=== PATIENT | female | born 1985 | race Caucasian/White ===

== ENCOUNTER 2016-04-24 05:41 | Inpatient (IN) | payer OTHER ==
--- NOTE | 2016-04-23 23:10 | History & Physical ---
See Addendum General Information and HPI MD Statement: I have seen and personally examined JOON FAJARDO and documented this H&P. The patient is a 30 year old female at [39] weeks and [1] days gestation who presented with a chief complaint of [c/section for suspected macrosomia, failed shoulder dystocia screen]. Source of Information: patient Exam Limitations: no limitations History of Present Illness: 30 year old presents with fetus with EFW >4500g and a failed shoulder dystocia screen. She desires to proceed with elective delivery. Risks, benefits, alternatives reviewed. also remarkable for a thyroid disorder and failed one hour glucose tolerance test but normal 3 hour glucose tolerance test. 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 EENTM: Reports: no symptoms. Cardiovascular: Reports: no symptoms. Respiratory: Reports: no symptoms. GI: Reports: no symptoms. Genitourinary: Reports: no symptoms. Musculoskeletal: Reports: no symptoms. Skin: Reports: no symptoms. Neurological/Psychological: Reports: no symptoms. Hematologic/Endocrine: Reports: no symptoms. Immunologic/Allergic: Reports: no symptoms. All Other Systems: Reviewed and Negative Exam & Diagnostic Data Obstetric Exam Wgt Gained During : 38 Pelvimetry: na Dilation (cm): 0 Effacement (%): 0 Station: 0 Membranes: intact Fluid: unknown Fundal Height (cm): 40 Multiple Gestation? No Contractions: rare #1 - FHR Baseline: 130 Category: 1 Estimated Weight: 10lbs Presentation: vtx Patient for Induction? No Physical Exam General Appearance Alert, Oriented X3, Cooperative, No Acute Distress Skin No Rashes, No Breakdown, No Significant Lesion HEENT Atraumatic, PERRLA Cardiovascular Regular Rate, Normal S1, Normal S2 Lungs Clear to Auscultation, Normal Air Movement Abdomen Normal Bowel Sounds, No Tenderness, gravid Neurological Normal Gait, Normal Speech, Strength at 5/5 X4 Ext Extremities No Clubbing, No Cyanosis Reproductive (FEMALE) Normal female genitalia Labs Blood Type & Rh: Opos Antibody Screen: neg Hct/Hgb & Platelets #1: 14.1 42.1 243 Hct/Hgb & Platelets #2: 12.9 38.5 185 Rubella: imm VDRL #1: neg VDRL #2: neg HbsAg: neg HIV #1: neg HIV #2 neg 1 Hr P 3 Hr PG: nl Group B Strep: neg Initial Ultrasound: 7.28.16 Anatomy Ultrasound: 19.6, echogenic focus LV, SEEN AT [facility] AND [facility] MAT 21, MALE, Ultrasound for EFW: 37+5W, >97%, LARGER AC, POLYHDRAMNIOS, 38+5, 4533G (10LBS) AC>97% Genetic Testing: NEG PROGENITY TRIPLE, NL MAT t21, xy Assessment/Plan Assessment/Plan: 30 YEAR OLD FEMALE WITH SUSPECTED MACROSOMIC INFANT. 10 LBS EFW AND FAILED SHOULDER DYSTOCIA SCREEN, POLYHYDRAMNIOS PRESENTS FOR PRIMARY LTCS. R/B/A REVIEWED INCLUDING RISK OF BLEEDING, INFECTION, INJURY TO OTHER ORGANS, NEED FOR ADDITIONAL PROCEDURES SHOULD COMPLICATION OCCUR, POSSIBLE NEED FOR TRANSFUSION, HYSTERECTOMY. SHE STATED UNDERSTANDING OF THE ABOVE AND DESIRES TO PROCEED. As Ranked By This Provider Problem List: 1. Core Measures/Miscellaneous Venous Thromboembolism VTE Risk Factors: / VTE Contraindications: No Contraindications VTE Prophylaxis Ordered Inpt: Mechanical (ALPS/TEDS) VTE Diagnosis: No Beta Luz Is Beta Luz a Home Med? No Antibiotics Is Patient on Antibiotics? No Attending MD Review Statement Attending Statement Attending MD Statement: examined this patient, discussed with family, discussed w/nursing
[~2016-04-24] VITALS: Ht 167.6 cm; Wt 108.9 kg
[2016-04-24 05:59] VITALS: BP 137/82
--- NOTE | 2016-04-24 09:21 | Operative Report ---
Operative/Inv Procedure Report Surgery Date: 04/24/16 Name of Procedure: Primary low transverse section Pre-Operative Diagnosis: Suspected macrosomia, failed shoulder dystocia screen Post-Operative Diagnosis: Same Estimated Blood Loss: 700 mL Surgeon/Sort Line Worker: IRIS SHERMAN DO, PA Anesthesia: block Monitors: Spinal with Astramorph IV Fluids: 1700 mL Urine Output: 100 mL Drains: Reynolds catheter Specimens: Placenta Complications: None Condition: Good Operative Indication: This patient is a 30-year-old 1 para 0 who presents at 39 weeks and 1 day with presumed macrosomic . Recent estimated weight was estimated to be 10 pounds and a recent shoulder dystocia screen was positive. The patient was counseled on the risks, benefits and alternatives of elective delivery versus vaginal delivery. We discussed the margin of error with ultrasound as well as risk of surgery including risk of bleeding, infection , injury to the organs or to the and possible need for additional surgeries should complication occur, possible repeat deliveries in the future. We discussed risk of vaginal delivery with possible risk of shoulder dystocia and the potential for long-term competition for the . We discussed [employer] recommendation is delivery if diabetic and estimated weight greater than 4500 g or nondiabetic and estimated weight greater than 5000 g. Her estimated weight was 4533 g and thus does not meet criteria however in light of her recent shoulder dystocia screen the patient desires to proceed with primary low transverse section. Questions were answered. She desires to proceed. Operative/Procedure Note Note: The patient was taken to the operating room where anesthesia was obtained without difficulty. She was placed in dorsal supine position with a left lateral tilt. She was then prepared and draped in usual sterile fashion. A Pfannenstiel skin incision was made with the scalpel and carried down to the fascia with the scalpel as well as with the Bovie. The fascia was incised with the scalpel and the incision was then extended bilaterally with Blank scissors. The superior aspect of the fascial incision was tented up with Enderlin clamps and rectus muscles dissected off with sharp dissection. Attention was then turned to the inferior portion of the fascial incision which was similarly tented up with Enderlin clamps and rectus muscles dissected off with sharp dissection. Rectus muscles were in midline. Peritoneum was identified and entered sharply with Metzenbaum scissors. Peritoneal incision was then extended superiorly and inferiorly with good visualization of bladder. Bladder blade was inserted. Vesicouterine peritoneum was identified and entered sharply with Metzenbaum scissors. Incision was then extended bilaterally and a bladder flap created digitally as well as sharply. Bladder blade was then reinserted. Lower uterine segment was then incised with the scalpel in a transverse fashion. Incision was then extended with blunt dissection. Head was delivered atraumatically. Double nuchal cord was noted. The was bulb suctioned. Shoulders and the body of the was then delivered without difficulty. The infant was further bulb suctioned and the cord was clamped and cut and infant was handed to the awaiting pediatric team. It was then delivered with gentle traction on its cord. The uterus was then exteriorized and cleared of all clots and debris. 10 units of Pitocin was injected intrauterine. Uterine incision was then reapproximated with 0 Vicryl in a running locking fashion. A second imbricating layer of 0 Vicryl was then placed. Small amount of bleeding was noted in the midline as well as on the right aspect of the uterine incision for which [id number] sutures were placed and excellent hemostasis noted. The uterus then irrigated posteriorly. She was noted to have normal-appearing bilateral fallopian tubes and ovaries. Uterine incision was reevaluated and noted to be hemostatic. The uterus was then replaced back into the abdomen and gutters were cleared of all clots and debris. Uterine incision was again reevaluated and noted to be hemostatic. With with 2-0 Polysorb rectus muscle was re-approximated inferiorly with [id number] suture of 2-0 Polysorb. Good hemostasis of the rectus muscles were noted. Fascia was reapproximated 0 Polysorb. Subcutaneous tissues were irrigated and noted to be hemostatic. Subcutaneous tissues were reapproximated with 3-0 Polysorb. Skin was closed with 4-0 Biosyn on a Arian needle. All sponge lap needle counts were correct 2. Findings: The patient delivered a 9 lbs. 4 oz. male with scores of 8, 9, 9 at 0807 on 04/24/2016. Double Nuchal cord was noted. Should normal-appearing fallopian tubes and ovaries. Discharge Disposition: childbirth center
[2016-04-25 07:55] LABS: ABSOLUTE BASOPHIL COUNT 0 /CUMM (0.0-0.2); ABSOLUTE EOSINOPHIL COUNT 0.1 /CUMM (0.0-0.7); ABSOLUTE GRANULOCYTE CT 4.1 /CUMM (1.4-6.5); ABSOLUTE LYMPH COUNT 1.2 /CUMM (1.2-3.4); ABSOLUTE MONOCYTE COUNT 0.4 /CUMM (0.10-0.60); BASOPHIL % 0.6 % (0.0-2.0); EOSINOPHIL % 1.4 % (0-5); GRANULOCYTE % 70.5 % (42.2-75.2); MEAN CORPUSCULAR HGB 29.3 PG (27.0-31.0); MEAN CORPUSCULAR HGB CONC 34.1 G/DL (33.0-37.0); MEAN PLATELET VOLUME 8.4 FL (7.4-10.4); PLATELET COUNT 123 /CUMM (130-400); RED BLOOD CELL CT 3.64 /CUMM (4.20-5.40); WHITE BLOOD CELL COUNT 5.9 /CUMM (4.8-10.8)
[2016-04-25 08:07] LABS: HEMATOCRIT 31.3 % (37-47)
--- NOTE | 2016-04-25 09:11 | PN- OBGYN ---
Subjective Subjective: feeling well Review of Systems Constitutional: Reports: no symptoms. EENTM: Denies: blurred vision, double vision, visual changes. Cardiovascular: Denies: chest pain, edema. Respiratory: Denies: cough, short of breath. Gastrointestinal: Denies: nausea, vomiting. Objective Last 24 Hrs of Vital Signs/I&O vss Physical Exam General Appearance Alert, Oriented X3, Cooperative, No Acute Distress Cardiovascular Regular Rate Abdomen Soft, incision clean and dry Obstetric Exam Dilation (cm): 0 Effacement (%): 0 Station: 0 Membranes: AROM Fluid: clear Multiple Gestation? No Contractions: no Infant #1 - FHR Baseline: 130 Category: 1 Estimated Weight: 10lbs Presentation: vtx Last 24 Hrs of Labs/Yeyo: Laboratory Tests 04/25/ 0630: CBC w Diff NO MAN DIFF REQ, RBC 3.64 L, MCV 86.0, MCH 29.3, RDW 14.0, MPV 8.4, Gran % 70.5, Lymphocytes % 20.2 L, Monocytes % 7.3, Eosinophils % 1.4, Basophils % 0.6, Absolute Granulocytes 4.1, Absolute Lymphocytes 1.2, Absolute Monocytes 0.4, Absolute Eosinophils 0.1, Absolute Basophils 0, PUBS MCHC 34.1 Assessment/Plan Assessment/Plan pod #1 vss afebrile Problem List: 1. Attending MD Review Statement Attending Statement Attending MD Statement: examined this patient, discussed with family, discussed w/nursing
--- NOTE | 2016-04-26 08:15 | PN- Post Delivery/GYN ---
Subjective Subjective: feeling well Review of Systems Constitutional: Reports: no symptoms. Denies: chills, fever. EENTM: Denies: blurred vision, double vision, visual changes. Cardiovascular: Denies: palpitations. Respiratory: Denies: short of breath. Gastrointestinal: Denies: diarrhea, nausea, vomiting. Neurological/Psychological: Denies: anxiety, depressed. Objective Last 24 Hrs of Vital Signs/I&O vss Physical Exam General Appearance Alert, Oriented X3, Cooperative, No Acute Distress Cardiovascular Regular Rate Lungs Clear to Auscultation Abdomen Soft, incision healing well Pelvic (FEMALE) lochia sanganous Current Medications: Current Medications Sig/[place] Start time Last Medication Dose Route Stop Time Status Admin Bisacodyl 10 MG DAILY NEEDED PRN 04/24 0900 AC WY Bisacodyl 5 MG DAILY NEEDED PRN 04/24 09 AC PO Diphenhydramine HCl 25 MG Q6P PRN 04/24 0900 AC IV 04/27 0901 Docusate Sodium 100 MG BID 04/25 1000 AC 04/25 PO 1958 Enoxaparin Sodium 40 MG 04/25 DC SC Enoxaparin Sodium 40 MG 04/24 AC 04/24 SC 2015 Hydroxyzine HCl 50 MG AT BEDTIME NEED.. 04/25 0000 AC PO 04/28 0001 Ibuprofen 800 MG .STK-MED ONE 04/25 1948 DC PO 04/25 1949 Ibuprofen 800 MG .STK-MED ONE 04/25 1401 DC PO 04/25 1402 Ibuprofen 800 MG Q6P PRN 04/24 0900 AC 04/26 PO 0200 Ketorolac 30 MG Q6P PRN 04/24 0830 DC 04/25 Tromethamine IV 04/25 0859 0200 Lactated Ringer's 1,000 ML Q8H 04/24 0900 AC IV Levothyroxine Sodium 0.075 MG DAILY AC 04/25 1345 AC 04/26 PO 0655 Magnesium Hydroxide 30 ML DAILY NEEDED PRN 04/24 09 AC PO 04/27 0901 Metoclopramide HCl 10 MG Q6P PRN 04/24 1000 AC IV Naloxone HCl 0.2 MG .Q5MIN PRN 04/24 1000 AC IV Oxycodone/ 1 TAB Q4P PRN 04/24 0900 AC 04/26 Acetaminophen PO 0655 Oxycodone/ 2 TAB Q4P PRN 04/24 0900 AC Acetaminophen PO Senna 187 MG AT BEDTIME NEED.. 04/24 0900 AC PO Simethicone 80 MG Q6P PRN 04/25 0100 AC 04/25 PO 0732 Assessment/Plan Assessment/Plan POD #2 vss afebrile Problem List: 1. Attending MD Review Statement Attending Statement Attending MD Statement: examined this patient, discussed with family, discussed with nursing
[2016-04-27] MEDS ORDERED: SYNTHROID75 MCG PO (08:45)
[2016-04-27] MEDS ORDERED: PERCOCET 5-3251 EACH PO (08:45)
[2016-04-27] MEDS ORDERED: IBUPROFEN800 M1 PO (08:45)
--- NOTE | 2016-04-27 08:47 | PN- OBGYN ---
Surgical Brief Attending Note Brief Attending Note: POD #3 vss afebrile pt voiding and tollerating diet incision clean and dry lochia serosanganous plan d/c home f/u 48 hours
--- NOTE | 2016-05-12 15:27 | Discharge Summary ---
Visit Information Visit Dates Admission Date: 04/24/16 Discharge Date: 04/27/16 Hospital Course Course Attending Physician: IRIS SHERMAN DO Primary Care Physician: BEVERLEY ADAMSON,[facility] Course: 30 YEAR OLD FEMALE WITH SUSPECTED MACROSOMIC . 10 LBS EFW AND FAILED SHOULDER DYSTOCIA SCREEN, POLYHYDRAMNIOS PRESENTS FOR PRIMARY LTCS. R/B/A REVIEWED INCLUDING RISK OF BLEEDING, INFECTION, INJURY TO OTHER ORGANS, NEED FOR ADDITIONAL PROCEDURES SHOULD COMPLICATION OCCUR, POSSIBLE NEED FOR TRANSFUSION, HYSTERECTOMY. SHE WAS GIVEN THE ALTERNATIVE OF VAGINAL DELIVERY EFW WAS JUST UNDER 5000GRAMS BUT SHE DECLINED. SHE STATED UNDERSTANDING OF THE ABOVE AND DESIRES TO PROCEED. SURGERY WAS UNCOMPLICATED.SHE DELIVERED A 9 POUND 3 OUNCE MALE . HOSPITAL COURSE WAS UNCOMPLICATED. SHE WAS DISCHARGED TO HOME ON POSTOP DAY 3 IN GOOD CONDITION. SHE WAS AMBULATING, VOIDING, TOLERATING PAIN AND PO. LOCHIA WAS APPROPRIATE. DISCHARGE PRECAUTIONS WERE ADVISED. Complications: NONE Allergies: Coded Allergies: NO KNOWN ALLERGIES (04/24/16) Significant Procedures: PRIMARY LOW TRANSVERSE SECTION Disposition Summary Disposition Principal Diagnosis: TERM , DELIVERED Additional Diagnosis: MACROSOMIC POLYHYDRAMNIOS. Discharge Disposition: home or self care Discharge Instructions General Discharge Information Code Status: Full Code Patient's Diet: REGULAR Patient's Activity: PELVIC REST, NO HEAVY LIFTING X 6 WEEKS Follow-Up Instructions/Appts: [facility] UP [facility] AT 2 AND 6 WEEKS POSTOP Medications at Discharge Discharge Medications: Start taking the following new medications: Ibuprofen (Ibuprofen) 800 MG TABLET 800 Milligram ORAL EVERY SIX HOURS NEEDED as needed for UTERINE CRAMPING Qty = 90 No Refills Comments: Last Taken:04/27/16 Time:0500 Oxycodone HCl/Acetaminophen (Percocet 5-325 MG Tablet) 5 MG-325 MG TABLET 1 Tablet ORAL EVERY 4 HOURS NEEDED as needed for PAIN SCALE 4-6 (MODERATE ) Qty = 30 No Refills Comments: Last Taken:04/27/16 Time:0813 Levothyroxine Sodium (Synthroid) 75 MCG TABLET 0.075 Milligram ORAL DAILY BEFORE BREAKFAST Qty = 30 No Refills Comments: Last Taken:04/27/16 Time:0658 Copies To: IRIS SHERMAN DO
== END 2016-04-27 10:10 | DRG 766 ==
LOC: GNO 05:41
PROVIDERS: Physician Assistant Medical; ADMIT Obstetrics & Gynecology
PROC: 10D00Z1 Extraction of Products of Conception, Low, Open Approach (ICD-10-PCS; principal; 2016-04-24)
DX: O36.63X0 Maternal care for excessive fetal growth, third trimester, not applicable or unspecified (principal); O66.0 Obstructed labor due to shoulder dystocia; Z3A.39 39 weeks gestation of pregnancy; Z37.0 Single live birth; Z87.891 Personal history of nicotine dependence
CPT/HCPCS: GNOS; 87086; 88307; J0690; J1650; J1885; J7120